=== PATIENT | female | born 1990 | race Caucasian/White ===

== ENCOUNTER 2016-12-08 21:48 | Emergency (ER) | payer MEDICAID ==
--- NOTE | ~2016-12-08 | CT2 ---
[facility] A Service of [facility] RADIOLOGY TEXT RESULTS PATIENT: AVELINO DOZIER LOCATION: SED : [birth year] UNIT #: [id number] AGE: [address]: Jose E Coburn MD SEX: F ORDER DR: [id number] [address] [id number] [id number] MR#: [id number] Acc #: [id number] NAME: AVELINO DOIZER : 1990 SEX: F STUDY DATE/TIME: 12/09/2016 0:31 UNIT: SED ROOM: STUDY DESCRIPTION: CT Abd and Pelv W Cont Attending Physician: Jose E Coburn M.D. Ordering Physician: Jose E Coburn M.D. Primary Care Physician: Primary Care Physician No MEDICAL IMAGING REPORT This report is preliminary unless electronic signature is present. EXAM CT abdomen and pelvis with contrast INDICATION Generalized abdominal pain. Rectal and vaginal bleeding since Sunday. PROCEDURE Contrast-enhanced CT of the abdomen and pelvis. This CT exam was performed with one or more of the following radiation dose reduction techniques: automatic exposure control, adjustment of mA and/or kV according to patient size, and iterative reconstruction. COMPARISON 03/22/2009 FINDINGS ABDOMEN WITH CONTRAST: Indeterminate 11.0 mm enhancing nodule right hepatic lobe not clearly seen on the prior. A second 1.3 cm nodule in segment 4 the liver also not clearly seen on the prior. The spleen, kidneys, adrenal glands, pancreas and gallbladder are unremarkable. Bowel loops are nondilated. Moderate colonic stool burden. Appendix is normal. No abdominal fluid collection. PELVIS WITH CONTRAST: No pelvic mass or fluid. No aggressive appearing bone lesion. Short segment focal intussusception of small bowel in the left mid abdomen. No proximal obstruction. IMPRESSION 1. No acute findings. [facility] A Service [facility] RADIOLOGY TEXT RESULTS PATIENT: AVELINO DOZIER LOCATION: SED : [birth year] UNIT #: [id number] AGE: [address]: Jose E Coburn MD SEX: F ORDER DR: 2. Short-segment intussusception of a small bowel loop in the left mid abdomen probably an incidental finding. No evidence for proximal obstruction. 3. Two indeterminate enhancing lesions in the liver, not clearly seen on the 2009 study. Given the patient's age these are probably benign and can be further characterized with non-emergent abdominal MRI or liver protocol CT. MRI would be preferred given the patient's age. Not mentioned above, there is a third enhancing lesion at the dome of the liver that also measures approximately 10.0 mm. Dictated by... Alexander Rincon M.D. THIS IS AN ELECTRONICALLY VERIFIED REPORT Alexander Rincon M.D. at 12/09/2016 10:08 PM Fang TD: 12/09/2016 09:55 JOB #: [id number] MEDICAL IMAGING REPORT Page 1 of 1
[~2016-12-08 21:48] MED LIST: DOXYCYCLINE PO; FLAGYL PO; IBUPROFEN PO; PRENATAL1 TA1 PO; SEROQUEL PO; TORADOL10 MG PO; TRILEPTAL PO
[2016-12-08 23:03] LABS: BASOPHIL# 0.1 X10e3 (0-0.3); BASOPHIL% 0.6 % (0-2.5); EOSINOPHIL# 0.1 X10e3 (0-0.7); EOSINOPHIL% 1.1 % (0.0-7.0); HEMATOCRIT 38.8 % (35.0-45.0); HEMOGLOBIN 12.8 gm/dL (12.0-16.0); LYMPHOCYTE# 3.3 X10e3 (1.0-3.5); LYMPHOCYTE% 33.9 % (17.0-45.0); MEAN CELL VOLUME 90.6 FL (83-96); MEAN CORPUSCULAR HGB CONC 33.1 g/dL (30-36); MEAN PLATELET VOLUME 8.3 FL (6.5-11.5); MONOCYTE# 0.6 X10e3 (0-1.0); MONOCYTE% 6.6 % (3.0-12.0); NEUTROPHIL# 5.6 X10e3 (1.5-7.1); NEUTROPHIL% 57.8 % (40-75); PLATELET COUNT 219 X10e3 (140-420); RED BLOOD COUNT 4.28 X10e (3.90-5.30); RED CELL DISTRIBUTION WIDTH 13.4 % (11.0-15.5); WHITE BLOOD COUNT 9.7 X10e3 (4.0-10.5)
[2016-12-08 23:05] LABS: DIFF IND NO
[2016-12-08 23:13] LABS: PROTHROMBIN TIME (PATIENT) 10.8 SECONDS (9.5-12.4)
[2016-12-08 23:16] LABS: URINE SOURCE CLEAN CATCH
[2016-12-08 23:18] LABS: URINE APPEARANCE CLEAR; URINE BILIRUBIN NEG (NEG); URINE BLOOD 2+ (NEG); URINE COLOR YELLOW; URINE GLUCOSE NEG (NORM); URINE KETONE NEG (NEG); URINE LEUKOCYTE ESTERASE NEG (NEG); URINE NITRATE NEG (NEG); URINE PROTEIN NEG (NEG); URINE SPECIFIC GRAVITY 1.025 (1.003-1.035)
[2016-12-08 23:21] LABS: PARTIAL THROMBOPLASTIN TIME 30.3 SECONDS (25.6-38.1)
[2016-12-08 23:22] LABS: ALBUMIN SERUM 4.1 g/dL (3.5-5.0); BILIRUBIN,TOTAL 0.3 mg/dL (0.2-2.0); BUN/CREATININE RATIO 17.14; CALCIUM SERUM 8.8 mg/dL (8.4-10.2); CREATININE SERUM 0.7 mg/dL (0.6-1.4); GLOM FILT RATE Estimated 121.3 mL/min (>60); POTASSIUM 3.2 mmol/L (3.5-5.1); PROTEIN TOTAL SERUM 7.4 g/dL (6.0-8.3)
[2016-12-08 23:25] LABS: MICRO INDICATED? YES
[2016-12-08 23:26] LABS: CULTURE INDICATED? NO; URINE BACTERIA NEG (NEG)
[2016-12-08 23:27] LABS: URINE AMORPHOUS SEDIMENT AMORP URATES; URINE MUCUS PRESENT; URINE SQUAMOUS EPITHELIAL CELL OCCAS /[HPF]
== END 2016-12-09 02:33 | disposition home or self-care (01) ==
LOC: SED 21:48
DX: N93.8 Other specified abnormal uterine and vaginal bleeding (principal); K62.5 Hemorrhage of anus and rectum; F17.200 Nicotine dependence, unspecified, uncomplicated; Z88.0 Allergy status to penicillin
CPT/HCPCS: 36415; 74177; 80053; 81003; 82270; 84703; 85025; 85610; 85730; 99284; Q9967

== ENCOUNTER 2017-02-26 15:47 | Emergency (ER) | payer MEDICAID ==
[2017-02-26 17:21] LABS: BASOPHIL# 0.1 X10e3 (0-0.3); BASOPHIL% 0.8 % (0-2.5); DIFF IND NO; EOSINOPHIL% 0.5 % (0.0-7.0); HEMATOCRIT 40.9 % (35.0-45.0); HEMOGLOBIN 13.7 gm/dL (12.0-16.0); LYMPHOCYTE# 2.8 X10e3 (1.0-3.5); LYMPHOCYTE% 28.1 % (17.0-45.0); MEAN CELL VOLUME 89.9 FL (83-96); MEAN CORPUSCULAR HEMOGLOBIN 30.2 PG (28-34); MEAN CORPUSCULAR HGB CONC 33.5 g/dL (30-36); MEAN PLATELET VOLUME 9.7 FL (6.5-11.5); MONOCYTE# 0.6 X10e3 (0-1.0); MONOCYTE% 5.6 % (3.0-12.0); NEUTROPHIL# 6.5 X10e3 (1.5-7.1); PLATELET COUNT 231 X10e3 (140-420); RED BLOOD COUNT 4.55 X10e (3.90-5.30)
[2017-02-26 17:36] LABS: ALBUMIN SERUM 4.2 g/dL (3.5-5.0); BILIRUBIN, DIRECT 0.2 mg/dL (0.0-0.2); BILIRUBIN,INDIRECT 0.3 mg/dL (0.0-0.9); BILIRUBIN,TOTAL 0.5 mg/dL (0.2-2.0); BUN/CREATININE RATIO 23.33; CALCIUM SERUM 9.4 mg/dL (8.4-10.2); CREATININE SERUM 0.6 mg/dL (0.6-1.4); GLOM FILT RATE Estimated 126.7 mL/min (>60); POTASSIUM 4.1 mmol/L (3.5-5.1); PROTEIN TOTAL SERUM 7.3 g/dL (6.0-8.3)
[2017-02-26 18:33] LABS: PARTIAL THROMBOPLASTIN TIME 28.7 SECONDS (25.6-38.1)
== END 2017-02-26 18:49 | disposition home or self-care (01) ==
LOC: SED 15:47
PROVIDERS: Physician Assistant
DX: E86.0 Dehydration (principal); Z88.0 Allergy status to penicillin
CPT/HCPCS: 36415; 80048; 80076; 82270; 85025; 85610; 85730; 99284